=== PATIENT | female | born 1995 | race Two or more races ===

== ENCOUNTER 2024-02-20 10:24 | Emergency (ER) | payer OTHER ==
[~2024-02-20] VITALS: Ht 180.3 cm; Wt 88.9 kg
[2024-02-20 12:14] LABS: HEMATOCRIT 40.1 % (36.0-45.00); HEMOGLOBIN 13.8 g/dL (12.0-15.00); MEAN CELL VOLUME 88.9 fL (80.00-100.00); MEAN CORPUSCULAR HEMOGLOBIN 30.6 pg (27.00-32.0); MEAN CORPUSCULAR HGB CONC 34.4 g/dl (32.0-36.0); PLATELET COUNT 337 K/uL (150-450); RED BLOOD COUNT 4.51 M/uL (4.00-6.00); RED CELL DISTRIBUTION WIDTH 13.6 % (11.5-14.5)
[2024-02-20 14:13] LABS: PH,URINE 7.5 (5.0-8.0); URINE APPEARANCE Clear; URINE BILIRRUBIN Negative (NEGATIVE); URINE BLOOD Large; URINE COLOR Yellow; URINE GLUCOSE Negative (NEGATIVE); URINE LEUKOCYTE Negative; URINE NITRATE Negative; URINE PROTEIN Negative (NEGATIVE)
[2024-02-20 14:17] LABS: URINE BACTERIA 191.4 uL (0.0-1933); URINE EPITHELIAL CELLS 12.8 uL (0.0-38.8); URINE RBC 1125.7 uL (0.0-20.8); URINE WBC 12.3 uL (0.0-23.2)
== END 2024-02-20 16:37 | disposition home or self-care (01) ==
LOC: ER 10:25
PROVIDERS: General Practice
DX: O20.9 Hemorrhage in early pregnancy, unspecified (principal); Z3A.01 Less than 8 weeks gestation of pregnancy

== ENCOUNTER 2025-02-28 15:00 | Inpatient (IN) | payer OTHER ==
[~2025-02-28] VITALS: Ht 177.8 cm; Wt 99.8 kg
[2025-03-03] VITALS (10 sets, daily range): BP systolic 112–136; BP diastolic 63–81
[2025-03-03] MEDS ORDERED: PRENATAL CAPLE1 EAC1 PO (12:26)
[2025-03-03] MEDS ORDERED: MORPHINE SULFATE 4 MG/ML VIAL IV STA (12:57)
[2025-03-03] MEDS ORDERED: RINGERS SOLUTION,LACTATED 1,000 ML IV SCH (13:00)
[2025-03-03 13:12] LABS: BASO % 0.2 % (0.1-1.2); EOS # 0.06 (0.04-0.54); EOS % 0.6 % (0.7-7.0); LYMPH # 1.11 (1.18-3.74); LYMPH % 11.4 % (19.3-53.1); MEAN PLATELET VOLUME 11.00 fl (9.4-12.4); MONO # 1.27 (0.24-0.82); NEUT # 7.25 (1.56-6.13); NEUT % 74.2 % (34.0-71.1); RED CELL DISTRIBUTION WIDTH 13.2 % (11.6-14.4)
[2025-03-03 13:19] LABS: MONO % 13.0 % (4.7-12.5)
[2025-03-03 13:31] LABS: INR < 0.93
[2025-03-03 13:36] LABS: ALT/SGPT 21.0 U/L (12-78); AST/SGOT 12.0 U/L (15-37); BILIRUBIN TOTAL 0.26 mg/dL (0.3-1.2); BUN CREA RATIO 21.0 (7.0-25.0); CREATININE SERUM 0.61 mg/dL (0.55-1.02); GFR 115.96; GLOBULINA 3.5 G/DL (2.4-3.5); GLUCOSE FASTING 88.0 mg/dL (65-100); OSMOLALITY SERUM 277.0 MOSM/KG (275-295)
[2025-03-03] MEDS ORDERED: ERYTHROMYCIN BASE OPHT 1GM EACH TUBE OP ONE ×2 (14:55→17:15)
[2025-03-03] MEDS ORDERED: LIDOCAINE HCL 1% 10ML VIAL ONE ×2 (14:55→14:58)
[2025-03-03] MEDS ORDERED: OXYTOCIN 20 UNITS/1000ML RL PIGGYBAG IV ONE (14:55)
[2025-03-03] MEDS ORDERED: CHLORHEXIDINE GLUCONATE 120 ML BOTTLE TOP ONE (14:55)
[2025-03-03] MEDS ORDERED: METHYLERGONOVINE MALEATE 0.2 MG/ML AMPUL ONE (16:27)
[2025-03-03] MEDS ORDERED: CARBOPROST TROMETHAMINE 250 MCG/ML AMPUL IM ONE (16:30)
[2025-03-03] MEDS ORDERED: METHYLERGONOVINE MALEATE 0.2 MG/ML AMPUL IV STA (16:59)
[2025-03-03] MEDS ORDERED: CARBOPROST TROMETHAMINE 250 MCG/ML AMPUL IM STA (16:59)
[2025-03-03] MEDS ORDERED: OXYTOCIN 1,000 ML IV SCH (17:00)
[2025-03-03] MEDS ORDERED: CHLORHEXIDINE GLUCONATE 120 ML BOTTLE TP SCH (17:00)
[2025-03-03] MEDS ORDERED: FERROUS SULFATE 325 MG TABLET.EC PO SCH (17:01)
[2025-03-03] MEDS ORDERED: DOCUSATE SODIUM 100MG CAP PO SCH (17:01)
[2025-03-03 17:05] LABS: BASO % 0.1 % (0.1-1.2); EOS # 0.00 (0.04-0.54); EOS % 0.0 % (0.7-7.0); LYMPH # 0.78 (1.18-3.74); LYMPH % 6.0 % (19.3-53.1); MEAN PLATELET VOLUME 10.60 fl (9.4-12.4); MONO # 0.56 (0.24-0.82); MONO % 4.3 % (4.7-12.5); NEUT # 11.63 (1.56-6.13); NEUT % 89.0 % (34.0-71.1); RED CELL DISTRIBUTION WIDTH 13.3 % (11.6-14.4)
[2025-03-03] MEDS ORDERED: METHYLERGONOVINE MALEATE 0.2 MG/ML AMPUL IM STA (17:17)
[2025-03-03] MEDS ORDERED: ONDANSETRON HCL 2 MG/ML VIAL ONE (17:29)
[2025-03-03] MEDS ORDERED: LIDOCAINE HCL 1% 20 ML VIAL IJ ONE (17:30)
[2025-03-03] MEDS ORDERED: ONDANSETRON HCL 2 MG/ML VIAL IV ONE (17:45)
[2025-03-03] MEDS ORDERED: METHYLERGONOVINE MALEATE 0.2 MG/ML AMPUL IM SCH (18:00)
[2025-03-03 20:38] LABS: BASO % 0.1 % (0.1-1.2); EOS # 0.01 (0.04-0.54); EOS % 0.0 % (0.7-7.0); LYMPH # 1.33 (1.18-3.74); LYMPH % 5.7 % (19.3-53.1); MEAN PLATELET VOLUME 10.50 fl (9.4-12.4); MONO # 1.69 (0.24-0.82); MONO % 7.2 % (4.7-12.5); NEUT # 20.19 (1.56-6.13); NEUT % 86.4 % (34.0-71.1); RED CELL DISTRIBUTION WIDTH 13.4 % (11.6-14.4)
[2025-03-04 00:33] VITALS: BP 109/68
[2025-03-04 04:00] VITALS: BP 104/67
[2025-03-04] MEDS ORDERED: PNV,CALCIUM 72/IRON/FOLIC ACID 1 TAB TABLET PO SCH (09:00)
[2025-03-04 09:01] VITALS: BP 112/60
[2025-03-04 13:43] VITALS: BP 108/68
[2025-03-04 16:07] VITALS: BP 100/67
[2025-03-05 01:25] VITALS: BP 98/60
[2025-03-05 09:54] VITALS: BP 119/75
== END 2025-03-05 11:06 | disposition home or self-care (01) | DRG 807 ==
LOC: LDR 03-03 12:25 → OB/GYN 03-03 12:25
PROVIDERS: ADMIT Obstetrics & Gynecology Maternal & Fetal Medicine; ATTEND Obstetrics & Gynecology Maternal & Fetal Medicine
PROC: 10E0XZZ Delivery of Products of Conception, External Approach (ICD-10-PCS; principal; 2025-03-03)
PROC: 0KQM0ZZ Repair Perineum Muscle, Open Approach (ICD-10-PCS; 2025-03-03)
PROC: 0W8NXZZ Division of Female Perineum, External Approach (ICD-10-PCS; 2025-03-03)
PROC: 4A1HXCZ Monitoring of Products of Conception, Cardiac Rate, External Approach (ICD-10-PCS; 2025-03-03)
DX: O70.1 Second degree perineal laceration during delivery (principal); Z37.0 Single live birth; Z3A.38 38 weeks gestation of pregnancy